=== PATIENT | female | born 1965 | race Caucasian/White ===

== ENCOUNTER 2022-11-14 15:24 | Outpatient (CLI) | payer OTHER, SELFPAY ==
--- NOTE | 2022-11-14 15:30 | CRLHL7_ITS ---
For Patients: As a result of the Century Cures Act, medical imaging exams and procedure reports are released immediately into your electronic medical record. You may view this report before your referring provider. If you have questions, please contact your health care provider. INDICATION: Chronic SI joint pain TECHNIQUE: Noncontrast sagittal and axial T1, T2, and sagittal STIR sequences are provided. No comparisons. FINDINGS: The overall stature, alignment and intrinsic marrow signal of the lumbar spine is within normal limits. Conus is normal. L1-2, L2-3: Unremarkable. L3-4: Mild leftward eccentric disc bulge results in mild left foraminal narrowing with mild contact of the exiting left L3 nerve root laterally. No central canal or right foraminal narrowing. L4-5: Mild bilateral facet arthropathy with mild broad-based posterior disc bulge results in no significant central canal or foraminal narrowing. L5-S1: Central canal and neural foramina are patent. The superior visualized sacroiliac joints appear within normal limits. IMPRESSION: 1. Mild left L3-4 foraminal narrowing. 2. Mild degenerative changes at L4-5 resulting in no central canal or foraminal narrowing. Dictated by Maurisio Chamberlain MD @ 11/14/2022 5:07:32 PM (Electronically Signed)
== END 2022-11-14 15:25 | disposition home or self-care (01) ==
LOC: MRI 15:28
PROVIDERS: Visit Provider Family Medicine
DX: M53.3 Sacrococcygeal disorders, not elsewhere classified (principal); M47.816 Spondylosis without myelopathy or radiculopathy, lumbar region; M51.36 Other intervertebral disc degeneration, lumbar region
CPT/HCPCS: 72148

== ENCOUNTER 2022-11-25 09:48 | Outpatient (CLI) | payer OTHER, SELFPAY | END 2022-11-25 09:49 | disposition home or self-care (01) | LOC: INJ CL 09:50 | PROVIDERS: Visit Provider Family Medicine | DX: M54.16 Radiculopathy, lumbar region (principal); M51.36 Other intervertebral disc degeneration, lumbar region | CPT/HCPCS: 62323; J0702; Q9966 ==

== ENCOUNTER 2023-07-03 10:01 | Outpatient (CLI) | payer OTHER, SELFPAY ==
--- NOTE | 2023-07-03 10:15 | CRLHL7_ITS ---
For Patients: As a result of the Cures Act, medical imaging exams and procedure reports are released immediately into your electronic medical record. You may view this report before your referring provider. If you have questions, please contact your health care provider. BILATERAL SCREENING MAMMOGRAM WITH COMPUTER-AIDED DETECTION AND TOMOSYNTHESIS TECHNIQUE: CC and MLO views were obtained. These mammographic images have been obtained using full-field digital technique. These mammographic images were interpreted with the benefit of computer-aided detection. Breast Tomosynthesis was used in this interpretation. COMPARISON FILM: 10/17/21, 09/24/21, 03/17/18. FINDINGS: There are scattered areas of fibroglandular density IMPRESSION: There is no radiographic evidence for malignancy. ASSESSMENT: BI-RADS Category 2: Benign RECOMMENDATION: Routine screening mammogram in 1 year. A lay language report of this examination will be provided to the patient. Andrew Bowden M.D. Diagnostic Radiologist [email or web address] Transcribed: 5:56 [email or web address] heaton/Dictated by: Andrew Bowden MD @ 07/03/2023 12:54:00 PM (Electronically Signed)
== END 2023-07-03 10:02 | disposition home or self-care (01) ==
PROVIDERS: PCP Family Medicine; Visit Provider Family Medicine
DX: Z12.31 Encounter for screening mammogram for malignant neoplasm of breast (principal)
CPT/HCPCS: 77063; 77067

== ENCOUNTER 2024-08-11 09:34 | Outpatient (CLI) | payer OTHER, SELFPAY ==
--- NOTE | 2024-08-11 09:45 | CRLHL7_ITS ---
For Patients: As a result of the Century Cures Act, medical imaging exams and procedure reports are released immediately into your electronic medical record. You may view this report before your referring provider. If you have questions, please contact your health care provider. BILATERAL SCREENING MAMMOGRAM WITH COMPUTER-AIDED DETECTION AND TOMOSYNTHESIS TECHNIQUE: CC and MLO views were obtained. These mammographic images have been obtained using full-field digital technique. These mammographic images were interpreted with the benefit of computer-aided detection. Breast tomosynthesis was used in this interpretation. COMPARISON FILM: 07/03/23, 09/24/21, 03/17/18. FINDINGS: The breasts are heterogeneously dense, which may obscure small masses. IMPRESSION: There is no radiographic evidence for malignancy. ASSESSMENT: BI-RADS Category 2: Benign RECOMMENDATION: Routine screening mammogram in 1 year. A lay language report of this examination will be provided to the patient. ANDREW CONLEY M.D. Diagnostic Radiologist [email or web address] Transcribed: 08/18/2024, 4:[address]/Dictated by: Andrew Conley MD @ 08/18/2024 9:10:00 AM (Electronically Signed)
== END 2024-08-11 09:35 | disposition home or self-care (01) ==
LOC: MAMMO 09:37
PROVIDERS: PCP Nurse Practitioner Family; Visit Provider Nurse Practitioner Family
DX: Z12.31 Encounter for screening mammogram for malignant neoplasm of breast (principal); R92.333 Mammographic heterogeneous density, bilateral breasts
CPT/HCPCS: 77063; 77067

== ENCOUNTER 2024-08-23 09:07 | Outpatient (CLI) | payer OTHER, SELFPAY | END 2024-08-23 09:08 | disposition home or self-care (01) | LOC: INJ CL 09:08 | PROVIDERS: PCP Nurse Practitioner Family; Visit Provider Family Medicine | DX: M53.3 Sacrococcygeal disorders, not elsewhere classified (principal) | CPT/HCPCS: 27096; J0702; Q9966 ==

== ENCOUNTER 2025-05-02 09:00 | Outpatient (CLI) | payer OTHER, SELFPAY | END 2025-05-02 09:01 | disposition home or self-care (01) | LOC: INJ CL 09:00 | PROVIDERS: PCP Family Medicine; Visit Provider Family Medicine | DX: M53.3 Sacrococcygeal disorders, not elsewhere classified (principal) | CPT/HCPCS: 27096; J0702; Q9966 ==

== ENCOUNTER 2025-09-15 09:01 | Outpatient (CLI) | payer OTHER, SELFPAY ==
--- NOTE | 2025-09-15 09:15 | CRLHL7_ITS ---
For Patients: As a result of the Cures Act, medical imaging exams and procedure reports are released immediately into your electronic medical record. You may view this report before your referring provider. If you have questions, please contact your health care provider. COMPARISON: 08/11/2024, 07/03/2023, 10/17/2021 TECHNIQUE: Digital mammogram in CC and MLO projections including computer-aided detection (CAD) and tomosynthesis. BREAST COMPOSITION: There are scattered areas of fibroglandular density. FINDINGS: No suspicious findings. ASSESSMENT: BI-RADS 2 Benign RECOMMENDATION: Annual screening mammogram. A lay language report of this examination will be provided to the patient. Dictated by: Andrew Bowden MD @ 09/15/2025 10:06:44 (Electronically Signed)
== END 2025-09-15 09:02 | disposition home or self-care (01) ==
LOC: MAMMO 09:02
PROVIDERS: PCP Family Medicine; Visit Provider Family Medicine
DX: Z12.31 Encounter for screening mammogram for malignant neoplasm of breast (principal)
CPT/HCPCS: 77063; 77067